=== PATIENT | male | born 1970 | race African-American/Black ===

== ENCOUNTER 2019-12-08 09:41 | Emergency (ER) | payer BC ==
[~2019-12-08] VITALS: Ht 177.8 cm; Wt 116.7 kg
[2019-12-08] MEDS ORDERED: LOSARTAN POTASS25 MG (09:53)
[2019-12-08] MEDS ORDERED: METFORMIN HCL500 MG PO (09:53)
[2019-12-08 11:13] VITALS: BP 151/96
== END 2019-12-08 11:25 | disposition home or self-care (01) ==
LOC: FSED 09:41
DX: R60.0 Localized edema (principal); M79.89 Other specified soft tissue disorders; I10 Essential (primary) hypertension; E11.65 Type 2 diabetes mellitus with hyperglycemia
CPT/HCPCS: 80048; 80076; 81003; 85025; 93005; 99283